=== PATIENT | female | born 1990 | race Caucasian/White ===

== ENCOUNTER 2021-08-14 23:59 | Emergency (ER) | payer BC, SELFPAY ==
--- NOTE | ~2021-08-14 | XR_ITS ---
EXAMINATION: XR chest 2V DATE: 08/15/2021 00:38 INDICATION: Chest pain TECHNIQUE: PA and lateral views of the chest are obtained. COMPARISON: None available FINDINGS: The lungs are free of acute opacities. There is no pleural effusion or pneumothorax. The ca rdiomediastinal silhouette is normal. There is mild thoracic spondylosis. IMPRESSION: 1. No acute cardiopulmonary abnormality. Reviewed, dictated and finalized at location A.
--- NOTE | ~2021-08-14 | XR_ITS ---
EXAMINATION: XR knee RT 3V DATE: 08/15/2021 00:39 INDICATION: Right knee pain TECHNIQUE: Three views of the right knee were obtained on four radiographs. COMPARISON: None. FINDINGS: Alignment is normal. No fracture or osteochondral lesion. Joint spaces are normal with no e rosions. No joint effusion/synovitis. Soft tissues are unremarkable. IMPRESSION: 1. No acute osseous abnormality. Reviewed, dictated and finalized at location A.
[2021-08-15 00:01] VITALS: BP 146/71; PULSE 95; RESP 16; TEMP 36.4; O2SAT 100
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
== END 2021-08-15 01:29 | disposition home or self-care (01) ==
PROVIDERS: Emergency Provider Emergency Medicine
DX: S20.214A Contusion of middle front wall of thorax, initial encounter (principal); S83.91XA Sprain of unspecified site of right knee, initial encounter; V86.55XA Driver of 3- or 4- wheeled all-terrain vehicle (ATV) injured in nontraffic accident, initial encounter
CPT/HCPCS: 71046; 73562; 99284

== ENCOUNTER 2022-04-28 19:36 | Emergency (ER) | payer BC, SELFPAY | END 2022-04-28 20:15 | disposition left against medical advice (07) | PROVIDERS: Emergency Provider Internal Medicine Hematology & Oncology | DX: Z53.21 Procedure and treatment not carried out due to patient leaving prior to being seen by health care provider (principal) | CPT/HCPCS: 99199 ==

== ENCOUNTER 2022-04-28 20:04 | Emergency (ER) | payer BC, SELFPAY ==
--- NOTE | ~2022-04-28 | XR_ITS ---
EXAMINATION: XR chest 1V portable Exam Date/Time: 04/28/2022 21:22 CDT HISTORY: cough, sob, loss of taste, sore throat, sinus pressure Comparison: 08/15/2021. RESULT: Lines, tubes, and devices: None. Lungs and pleura: Clear. Cardiomediastinal silhouette: Stable cardiomediastinal silhouette. Other: No acute osseous or upper abdominal finding. IMPRESSION: No acute cardiopulmonary process. Reviewed, dictated and finalized at location K.
[2022-04-28 20:12] VITALS: BP 139/67; PULSE 82; RESP 18; TEMP 36.8; O2SAT 100
--- NOTE | 2022-04-28 21:20 | ED.GENADULT ---
HPI - General Adult General Chief complaint: Upper Respiratory Infection Stated complaint: cough, congestion, loss of taste Time Seen by Provider: 04/28/22 21:06 Source: RN notes reviewed History of Present Illness HPI narrative: Patient presents emergency department from home for upper respiratory infection. Patient states symptoms initially began yesterday with some sinus pressure and ringing or ears. States is progressed to a sore throat as well as a cough this been nonproductive as well as some mild shortness of breath with exertion. Patient states she did receive the COVID vaccination but did not receive the booster she denies any fevers or chills chest pain abdominal pain nausea vomiting or any other symptoms. Related Data Allergies Allergy/AdvReac Type Severity Reaction Status Date / Time No Known Allergies Allergy Verified 04/28/22 20:57 Review of Systems Review of Systems: Gen.: Denies fevers or chills Eyes: Denies eye pain or visual change ENT: See HPI Respiratory: Reports cough and shortness of breath with exertion CV: Denies chest pain or palpitations GI: Denies abdominal pain nausea, emesis or diarrhea Musculoskeletal: Denies back pain or muscle pain Neuro: Denies numbness, tingling, weakness or focal weakness Skin: Denies rash Except as documented, all other systems reviewed and negative [facility] Past Medical History Medical History (Updated 04/28/22 @ 22:12 by Joe Kinney DO) Patient denies significant medical history Social History Social History (Updated 04/28/22 @ 21:21 by Joe Kinney DO) Substance use type: marijuana Exam Narrative: APPEARANCE: No acute distress, nontoxic, resting in bed EYES: EOMI HEENT: Normocephalic, atraumatic, TMs clear bilaterally bilateral turbinates boggy moderately with no exudate of the posterior pharynx and bilateral tonsils uvula midline RESPIRATORY: No respiratory distress Clear to auscultation bilaterally with no rhonchi wheezing or rales. CARDIOVASCULAR: Regular rate and rhythm without murmurs rubs or gallops. ABDOMINAL: Soft, nontender, nondistended, no rebound or guarding MUSCULOSKELETAl: Moves all extremities. No clubbing, cyanosis or edema. NEURO: Awake and alert. Following commands, speech normal, no focal deficits SKIN:: Warm, dry. No rashes lesions or abrasions PSYCHIATRIC: Normal affect/mood, Course Course Emergency Course: Discussed with patient results of workup and diagnosis. Discussed need for follow-up with primary care, proper use of medication, and reasons to return to the emergency department. Patient understands and agrees to current treatment plan Vital Signs Vital signs: Vital Signs Temperature 98.2 F 04/28/22 20:12 Pulse Rate 82 04/28/22 20:12 Respiratory Rate 18 04/28/22 20:12 Blood Pressure 139/67 04/28/22 20:12 Pulse Oximetry 100 04/28/22 20:12 Oxygen Delivery Room Air 04/28/22 20:12 Temperature 98.2 F 04/28/22 20:12 Pulse Rate 82 04/28/22 20:12 Respiratory Rate 18 04/28/22 20:12 Blood Pressure 139/67 04/28/22 20:12 Pulse Oximetry 100 04/28/22 20:12 Oxygen Delivery Room Air 04/28/22 20:56 Medical Decision Making Vital Signs Vital Signs: Vital Signs Temperature 98.2 F 04/28/22 20:12 Pulse Rate 82 04/28/22 20:12 Respiratory Rate 18 04/28/22 20:12 Blood Pressure 139/67 04/28/22 20:12 Pulse Oximetry 100 04/28/22 20:12 Oxygen Delivery Room Air 04/28/22 20:12 Temperature 98.2 F 04/28/22 20:12 Pulse Rate 82 04/28/22 20:12 Respiratory Rate 18 04/28/22 20:12 Blood Pressure 139/67 04/28/22 20:12 Pulse Oximetry 100 04/28/22 20:12 Oxygen Delivery Room Air 04/28/22 20:56 Lab Data Labs: Lab Results 04/28/22 Range/Units 21:19 SARS-CoV-2 RNA (RT-PCR) Positive A Imaging Data Radiologist's impression: ITS Impressions Chest X-Ray 04/28/22 21:54 IMPRESSION: No acute cardiopulmonary process.
[2022-04-28 22:04] LABS: SARS-CoV-2 RNA PCR Positive
== END 2022-04-28 22:24 | disposition home or self-care (01) ==
PROVIDERS: Emergency Provider Emergency Medicine
DX: U07.1 COVID-19 (principal)
CPT/HCPCS: 71045; 99283; C9803; U0003; U0005

== ENCOUNTER 2022-06-16 08:45 | Emergency (ER) | payer BC, SELFPAY ==
[2022-06-16 08:58] VITALS: BP 125/70; PULSE 78; RESP 16; TEMP 36.2; O2SAT 99
--- NOTE | 2022-06-16 09:22 | ED.URI ---
HPI - URI/Sore Throat General Chief Complaint: Upper Respiratory Infection Stated Complaint: uri Time Seen by Provider: 06/16/22 09:23 Source: patient, RN notes reviewed and old records reviewed Mode of arrival: ambulatory Limitations: no limitations History of Present Illness HPI Narrative: 32 year old female who presents [facility] with complaints of sinus pressure, runny nose, nonproductive cough, with some sore throat, bilateral ears ringing for the past 2 days. Patient reports she had COVID in April 2022 is COVID vaccinated and has not had her booster has not had a flu shot. She has been taking Advil Cold and Sinus and also DayQuil and NyQuil for her symptoms with no resolution or improvement states she has felt feverish but has not had any known chills or sweats. MD elicited complaint: fever ([place] feverish), cough, sore throat, rhinorrhea, nasal congestion, sinus pain and other (Ears ringing) Pertinent past history: other (COVID April 2022, sinus problems) Onset (ago): day(s) (2) Able to tolerate fluids by mouth: Yes Treatments prior to arrival: cold medicine Related Data Allergies Allergy/AdvReac Type Severity Reaction Status Date / Time No Known Allergies Allergy Verified 06/16/22 09:15 Review of Systems Review of Systems: CONSTITUTIONAL: Reports he has felt feverish, no chills, or sweats. EYES: Denies visual changes, redness, or discharge. ENT: Positive rhinorrhea, congestion, sore throat, pressure and ringing bilateral ears CARDIOVASCULAR: Denies chest pain, palpitations, or edema. RESPIRATORY: Some Non-Productive cough denies dyspnea. GASTROINTESTINAL: Denies abdominal pain, nausea, vomiting, or diarrhea. GENITOURINARY: Denies dysuria or hematuria. SKIN: Denies rash or itching. MUSCULOSKELETAL: Denies back pain, joint pain, or myalgia. NEUROLOGIC: Denies headache, numbness, or weakness. PSYCHIATRIC: Denies anxiety or depression. All systems reviewed & are unremarkable except as noted in HPI and below PMFSH Past Medical History Medical History (Updated 06/17/22 @ 16:09 by Virgen Pittman NP) COVID-11 May 2022 History of sinus problem Seizures last 2017 Family History Family History (Updated 06/17/22 @ 16:10 by Virgen Pittman NP) Father Brain aneurysm Social History Social History (Updated 06/17/22 @ 16:10 by Virgen Pittman NP) Smoking status: Never smoker Alcohol intake: current Alcohol use details: social Substance use type: does not use Living arrangements: with family Gender identity (if verbalized by the patient): Female Comments At time of signature, agree with nursing past medical, surgical, social and family history. There is no relevant family history pertinent to the presenting complaint Exam Narrative: GENERAL: Well-appearing, well-nourished, and in no acute distress. HEAD: Normocephalic, atraumatic. EYES: PERRLA and EOMI. ENT: Nares red with clear rhinorrhea no epistaxis. Mucous membranes moist.TM's normal i dull light reflex left, throat with mild redness no lesions or tonsil swelling post nasal drainage NECK: Supple.no lymphadenopathy CHEST: Clear to auscultation. No respiratory distress.SAO2 99% on room air, non productive cough noted HEART: Regular rate and rhythm. No murmur heard. Normal peripheral pulses. ABDOMEN: Soft, nontender, nondistended, normal active bowel sounds. EXTREMITIES: Normal range of motion. No edema. SKIN: Warm, dry, no rash. NEURO: No focal deficits. Alert and oriented x3. Course Course Level of Care: Express Care Visit Vital Signs Vital signs: Vital Signs Temperature 36.2 C L 06/16/22 08:58 Pulse Rate 78 06/16/22 08:58 Respiratory Rate 16 06/16/22 08:58 Blood Pressure 125/70 06/16/22 08:58 Pulse Oximetry 99 06/16/22 08:58 Oxygen Delivery Room Air 06/16/22 08:58 Temperature 36.2 C L 06/16/22 08:58 Pulse Rate 78 06/16/22 08:58 Respiratory Rate 16 06/16/22 08:58 Blood Pressure 125/70 08/2
== END 2022-06-16 09:41 | disposition home or self-care (01) ==
PROVIDERS: Emergency Provider Registered Nurse
DX: J32.9 Chronic sinusitis, unspecified (principal); Z86.16 Personal history of COVID-19
CPT/HCPCS: 99213; G0463

== ENCOUNTER 2022-09-02 17:42 | Emergency (ER) | payer BC, SELFPAY ==
--- NOTE | 2022-09-02 18:02 | ED.URI ---
HPI - URI/Sore Throat General Chief Complaint: Upper Respiratory Infection Stated Complaint: uri Time Seen by Provider: 09/02/22 18:35 Source: patient Mode of arrival: ambulatory Limitations: no limitations History of Present Illness HPI Narrative: Ms. Salazar is a 32-year-old female patient presenting to clinic today with complaints of possible upper respiratory infection x 2 days She has nasal congestion, sore throat, loss of taste,has felt feverish, and shortness of breath. Reports that it is hard to take a deep breath in just due to the congestion. Had COVID back in April MD elicited complaint: sore throat and nasal congestion Related Data Allergies Allergy/AdvReac Type Severity Reaction Status Date / Time No Known Allergies Allergy Verified 09/02/22 18:27 Review of Systems Review of Systems: Pertinent positives per HPI. Patient denies any rash, visual changes, dizziness, chest pain, palpitations, nausea, vomiting, diarrhea, constipation, abdominal pain, or any urinary issues. [facility] Past Medical History Medical History COVID-11 May 2022 History of sinus problem Seizures last 2017 Family History Family History Father Brain aneurysm Social History Social History Smoking status: Never smoker Alcohol intake: current Alcohol use details: social Substance use type: does not use Gender identity (if verbalized by the patient): Female Comments At the time of my signature, I reviewed and agree with the nursing past medical, surgical, social, and family history. There is no relevant family history pertinent to the patient complaint. Exam Narrative: General: Well-developed, obese, in no apparent distress Head: Normocephalic, atraumatic Eyes: Pupils equally round and reactive to light bilaterally, EOM intact, sclera and conjunctive clear, no discharge, lids normal Ears: TMs intact and clear, ear canals clear, no drainage, grossly hearing normal. Nose: Nares patent, clear nasal discharge, moderate inflammation, no sinus tenderness. Mouth: Oral pharynx without lesions or masses, good dentition, MMM. postnasal drip, oropharynx red Neck: Supple, trachea midline, no enlargement of anterior or posterior cervical nodes, no thyroid masses or goiter palpable. Cardio: Regular rate and rhythm, s1 and s2 normal, no murmur appreciated. Resp: Clear to auscultation bilaterally, no rhonchi, rales, wheezing or rubs Course Course Emergency Course: Portions of this record may have been created with voice recognition software. Level of Care: Express Care Visit Vital Signs Vital signs: Vital Signs Temperature 37.5 C 09/02/22 18:31 Pulse Rate 92 09/02/22 18:31 Respiratory Rate 16 09/02/22 18:31 Blood Pressure 129/56 L 09/02/22 18:31 Pulse Oximetry 99 09/02/22 18:31 Oxygen Delivery Room Air 09/02/22 18:31 Temperature 37.5 C 09/02/22 18:31 Pulse Rate 92 09/02/22 18:31 Respiratory Rate 16 09/02/22 18:31 Blood Pressure 129/56 L 09/02/22 18:31 Pulse Oximetry 99 09/02/22 18:31 Oxygen Delivery Room Air 09/02/22 18:31 Vital signs reviewed MDM - URI/Sore Throat MDM Narrative Medical decision making narrative: At the time of visit patient is resting comfortably on the exam table. influenza, COVID, and strep testing was obtained in the clinic today. Supportive measures were discussed with the patient she voiced understanding of discharge instructions and agrees to treatment plan. Differential Diagnosis Differential diagnosis: Likely upper respiratory infection, otitis media, sinusitis, viral infection, bronchitis, influenza, pharyngitis and other ( COVID) Lab Data Labs: Influenza A Screen Positive Reference Range: Negative I
[2022-09-02 18:31] VITALS: BP 129/56; PULSE 92; RESP 16; TEMP 37.5; O2SAT 99
== END 2022-09-02 18:58 | disposition home or self-care (01) ==
PROVIDERS: Emergency Provider Nurse Practitioner Family
DX: J10.1 Influenza due to other identified influenza virus with other respiratory manifestations (principal); Z20.822 Contact with and (suspected) exposure to COVID-19; Z86.16 Personal history of COVID-19
CPT/HCPCS: 87081; 87426; 87804; 87880; 99213; C9803; G0463

== ENCOUNTER 2023-01-22 18:54 | Emergency (ER) | payer BC, SELFPAY ==
--- NOTE | ~2023-01-22 | XR_ITS ---
EXAM: XR foot RT min 3V DATE: 01/22/2023 19:39 HISTORY: pain on lat side of foot, pain since yesterday . COMPARISON: None available. FINDINGS: Normal mineralization. No fracture or dislocation. No lytic or blastic lesion. Joint space s are maintained. No erosion or periosteal change. Soft tissues within normal limits. IMPRESSION: No acute osseous finding in the right foot. Reviewed, dictated and finalized at location K.
[2023-01-22 18:59] VITALS: BP 144/84; PULSE 93; RESP 18; TEMP 36.5; O2SAT 100
--- NOTE | 2023-01-22 20:06 | ED.GENADULT ---
HPI - General Adult General Chief complaint: Extremity Injury, Lower Stated complaint: R. foot pain Time Seen by Provider: 01/22/23 19:17 History of Present Illness HPI narrative: 32-year-old female presented the emergency department for evaluation of right foot pain. Patient states she initially began having the right lateral ankle and right foot pain on . Patient states she does spend a lot of time on her feet at work but denies any other known injury. Patient states the pain is worsened with weightbearing. Related Data Allergies Allergy/AdvReac Type Severity Reaction Status Date / Time No Known Allergies Allergy Verified 09/02/22 18:27 Review of Systems Review of Systems: All systems reviewed & are unremarkable except as noted in HPI and below PMFSH Past Medical History Medical History COVID-11 May 2022 History of sinus problem Seizures last 2017 Family History Family History Father Brain aneurysm Social History Social History Smoking status: Never smoker Alcohol intake: current Alcohol use details: social Substance use type: does not use Living arrangements: with family Gender identity (if verbalized by the patient): Female Exam Narrative: APPEARANCE: Well appearing, no pain, no distress, well-nourished. HEAD: normocephalic, atraumatic. EYES: PERRLA/EOMI, conjunctivae clear. MUSCULOSKELETAL: Moves all extremities. No right ankle edema or ecchymosis. Minimal inferior lateral malar tenderness. Some tenderness on the right lateral foot. NEURO: Alert. Cranial nerves II through XII intact. Good gait. Good coordination SKIN: Warm, dry. Normal Color Course Course Emergency Course: 32-year-old female with right ankle and foot pain. X-ray was negative for acute fracture or dislocation. Exam is consistent with a possible ligamental strain. Patient will be provided Iron wrap and crutches for limited weightbearing. Patient was not informed the treatment plan for home and was advised to do ice therapy and take Tylenol and ibuprofen for pain control. Patient was also encouraged of close follow-up with her primary care physician. Vital Signs Vital signs: Vital Signs Temperature 97.7 F 01/22/23 18:59 Pulse Rate 93 01/22/23 18:59 Respiratory Rate 18 01/22/23 18:59 Blood Pressure 144/84 H 01/22/23 18:59 Pulse Oximetry 100 01/22/23 18:59 Oxygen Delivery Room Air 01/22/23 18:59 Temperature 97.7 F 01/22/23 18:59 Pulse Rate 93 01/22/23 18:59 Respiratory Rate 18 01/22/23 18:59 Blood Pressure 144/84 H 01/22/23 18:59 Pulse Oximetry 100 01/22/23 18:59 Oxygen Delivery Room Air 01/22/23 18:59 Medical Decision Making Vital Signs Vital Signs: Vital Signs Temperature 97.7 F 01/22/23 18:59 Pulse Rate 93 01/22/23 18:59 Respiratory Rate 18 01/22/23 18:59 Blood Pressure 144/84 H 01/22/23 18:59 Pulse Oximetry 100 01/22/23 18:59 Oxygen Delivery Room Air 01/22/23 18:59 Temperature 97.7 F 01/22/23 18:59 Pulse Rate 93 01/22/23 18:59 Respiratory Rate 18 01/22/23 18:59 Blood Pressure 144/84 H 01/22/23 18:59 Pulse Oximetry 100 01/22/23 18:59 Oxygen Delivery Room Air 01/22/23 18:59 Imaging Data Radiologist's impression: Impressions Foot X-Ray 01/22/23 19:43 IMPRESSION: No acute osseous finding in the right foot. Discharge Plan Discharge Clinical Impression: Right ankle strain Patient Disposition: Home, Self-Care Condition: Stable Instructions: Antibiotic Form, Ankle Sprain (ED), Crutch Instructions (ED) Additional Instructions: Iron wrap for her comfort, crutches for limited weightbearing. Tylenol and ibuprofen for pain control. Ice therapy as directed. Have close follow-up with your primary ca
== END 2023-01-22 21:17 | disposition home or self-care (01) ==
PROVIDERS: Emergency Provider Emergency Medicine
DX: S96.911A Strain of unspecified muscle and tendon at ankle and foot level, right foot, initial encounter (principal); X58.XXXA Exposure to other specified factors, initial encounter
CPT/HCPCS: 73630; 99283

== ENCOUNTER 2024-06-15 19:32 | Emergency (ER) | payer BC, SELFPAY ==
--- NOTE | 2024-06-15 19:33 | ED.BACK ---
HPI - Back Pain/Injury General Chief Complaint: Back Pain/Injury Stated Complaint: Back/Right Arm Pain Time Seen by Provider: 06/15/24 19:33 Source: patient Mode of arrival: ambulatory Limitations: no limitations History of Present Illness HPI Narrative: Melvi is a 34-year-old female patient presenting to the clinic today with complaints of right upper back pain/arm pain times 1-2 days. She reports she 1st noticed the pain in the right upper trapezius near the base of her neck. She denies any known neck injury. Has pain when turning her head to the left and also has numbness and tingling in the right arm. 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 Numbness comes and goes. Has tried massaging and this has helped some. Related Data Allergies Allergy/AdvReac Type Severity Reaction Status Date / Time No Known Allergies Allergy Verified 06/15/24 19:46 Review of Systems Review of Systems: Pertinent positives per HPI. Patient denies any fever, chills, rash, headache, visual changes, dizziness, cough, runny nose, sore throat, shortness of breath, chest pain, palpitations, nausea, vomiting, diarrhea, constipation, abdominal pain, or any urinary issues. PMFSH Past Medical History Medical History COVID-11 May 2022 History of sinus problem Seizures last 2018 Family History Family History Father Brain aneurysm Social History Social History Smoking status: Never smoker Alcohol intake: current Alcohol use details: social Substance use type: does not use Living arrangements: with family Gender identity (if verbalized by the patient): Female Comments At the time of my signature, I reviewed and agree with the nursing past medical, surgical, social, and family history. There is no relevant family history pertinent to the patient complaint. Exam Narrative: General: Well-developed, well nourished, in no apparent distress Head: Normocephalic, atraumatic. Cardio: Regular rate and rhythm, s1 and s2 normal, no murmur appreciated. Resp: Clear to auscultation bilaterally, no rhonchi, rales, wheezing or rubs. Musculoskeletal: No deformity,tender to palpation over the right upper trapezius with discomfort radiating down the right arm, pain over the right upper trapezius when turning her head against resistance to the left, hand grasp strength equal bilaterally, grossly normal range of motion, muscle strength strong and equal, peripheral pulse strong, no edema, no cyanosis, normal gait and station Course Course Emergency Course: Portions of this record may have been created with voice recognition software. Level of Care: Express Care Visit Vital Signs Vital signs: Vital signs reviewed MDM - Back Pain/Injury MDM Narrative Medical decision making narrative: At the time of visit patient is resting comfortably on the exam table. Patient appears to be nontoxic. Plan: I suspect patient has a trapezius muscle strain. Will send in prescription for Medrol Dosepak and cyclobenzaprine. Supportive measures were discussed with the patient and they voiced understanding discharge instructions and agrees to treatment plan. Return precautions reviewed Differential Diagnosis Differential diagnosis: Likely thoracic back pain and other (Muscle strain, cervical spondylosis, tendinitis) Discharge Plan Discharge Clinical Impression: Strain of cervical portion of right trapezius muscle Patient Disposition: Home, Self-Care Condition: Stable Instructions: Antibiotic Form, Cervical Strain (ED), Muscle Strain (DC) Additional Instructions: Take any prescription medication only as prescribed. Be mindful of sedation precautions given to you if taking a muscle relaxer. May use heat or ice to the affected area Consider massage or chiropractor adju
[2024-06-15 19:39] VITALS: BP 130/79; PULSE 79; RESP 16; TEMP 37.3; O2SAT 99
== END 2024-06-15 19:54 | disposition home or self-care (01) ==
PROVIDERS: Emergency Provider Nurse Practitioner Family
DX: S16.1XXA Strain of muscle, fascia and tendon at neck level, initial encounter (principal); X58.XXXA Exposure to other specified factors, initial encounter; Z86.16 Personal history of COVID-19
CPT/HCPCS: 99213; G0463

== ENCOUNTER 2024-07-02 19:48 | Emergency (ER) | payer BC, SELFPAY ==
[2024-07-02 20:01] VITALS: BP 152/83; PULSE 94; RESP 20; TEMP 37; O2SAT 99
--- NOTE | 2024-07-02 20:16 | ED.UPPEXIN ---
HPI - Extremity Injury (Upper) General Chief Complaint: Extremity Problem,Nontraumatic Stated Complaint: Right Arm Pain Time Seen by Provider: 07/02/24 20:18 Source: patient and RN notes reviewed Mode of arrival: ambulatory Limitations: no limitations History of Present Illness HPI narrative: 34-year-old female presents with concern for ongoing right arm pain and numbness that starts in the trapezius area. Reports she was seen here at the end of May prescribed prednisone and muscle relaxers. Reports he has also been seeing a chiropractor and this symptoms have been improving. He told her she is out of the ?acute? stage. Reports she is still having some pain and numbness. She reports symptoms did improve with the steroid and muscle relaxer but she ran out. MD complaint: injury to: right and arm Related Data Allergies Allergy/AdvReac Type Severity Reaction Status Date / Time No Known Allergies Allergy Verified 07/02/24 20:18 Review of Systems Review of Systems: CONSTITUTIONAL: Denies malaise, chills, sweats, or fever. SKIN: Denies rash or itching, open skin, laceration, abrasion, redness, warmth, swelling. MUSCULOSKELETAL: Reports right trapezius and arm pain NEUROLOGIC: Denies numbness, weakness All systems reviewed & are unremarkable except as noted in HPI and below PMFSH Past Medical History Medical History COVID-11 May 2022 History of sinus problem Seizures last 2017 Family History Family History Father Brain aneurysm Social History Social History Smoking status: Never smoker Alcohol intake: current Alcohol use details: social Substance use type: does not use Living arrangements: with family Gender identity (if verbalized by the patient): Female Comments At time of signature, agree with nursing past medical, surgical, social and family history. There is no relevant family history pertinent to the presenting complaint Exam Narrative: GENERAL: Well-appearing, well-nourished, and in no acute distress. HEAD: Normocephalic, atraumatic. EYES: PERRLA, conjunctivae clear NECK: Supple. CHEST: Speaks in full sentences. No respiratory distress. HEART: Regular rate and rhythm. Normal and equal peripheral pulses. EXTREMITIES: Right upper extremity has grossly normal strength, grossly normal range of motion. No edema or ecchymosis. Normal sensation with sensitivity to light touch and pain. Skin warm, dry, pink. Capillary refill less than 3 seconds. SKIN: Warm, dry, no rash. NEURO: Alert and oriented x3. PSYCH: Normal mood and affect Course Course Emergency Course: Patient is aware of diagnosis, understands and agrees to treatment plan. Anticipatory guidance given. Patient agrees to follow-up as directed and is aware of reasons to seek care at the emergency department. Portions of this record may have been created with voice recognition software Level of Care: Express Care Visit Vital Signs Vital signs: Vital Signs Temperature 98.6 F 07/02/24 20:01 Pulse Rate 94 07/02/24 20:01 Respiratory Rate 20 07/02/24 20:01 Blood Pressure 152/83 H 07/02/24 20:01 Pulse Oximetry 99 07/02/24 20:01 Oxygen Delivery Room Air 07/02/24 20:01 Temperature 98.6 F 07/02/24 20:01 Pulse Rate 94 07/02/24 20:01 Respiratory Rate 20 07/02/24 20:01 Blood Pressure 152/83 H 07/02/24 20:01 Pulse Oximetry 99 07/02/24 20:01 Oxygen Delivery Room Air 07/02/24 20:01 Reviewed. MDM - Extremity Injury (Upper) MDM Narrative Medical decision making narrative: Patients pain is consistent with musculoskeletal etiology. No signs of neurological or vascular compromise on exam. Compartments and tissues are soft without signs of compartment syndrome. Pain is felt appropriate for further evaluation on an outpatie
== END 2024-07-02 20:33 | disposition home or self-care (01) ==
PROVIDERS: Emergency Provider Nurse Practitioner
DX: S16.1XXA Strain of muscle, fascia and tendon at neck level, initial encounter (principal); X58.XXXA Exposure to other specified factors, initial encounter; Z86.16 Personal history of COVID-19
CPT/HCPCS: 99213; G0463

== ENCOUNTER → 2024-07-22 14:27 | Outpatient (CLI) | payer BC, SELFPAY ==
--- NOTE | ~2024-07-22 | XR_ITS ---
XR cervical spine 4-5V Ordering provider: Margarita Childers DO History: . M54.12 - Radiculopathy, cervical region . Comparison: None. FINDINGS: VERTEBRAL BODIES: Normal height and alignment. No visible fracture or subluxation. The dens is intact . DISK SPACES: Well maintained. PARASPINOUS SOFT TISSUES: No prevertebral soft tissue swelling. IMPRESSION: No acute osseous abnormality cervical spine. Reviewed, dictated and finalized at location A.
--- NOTE | ~2024-07-22 | XR_ITS ---
XR shoulder RT min 2V Ordering provider: Margarita Childers DO History: . M54.12 - Radiculopathy, cervical region . Comparison: None. FINDINGS: BONES: No acute fracture or dislocation. JOINT SPACES: The acromioclavicular joint is normal. The glenohumeral joint is normal. SOFT TISSUES: Normal. IMPRESSION: No acute osseous abnormality right shoulder. Reviewed, dictated and finalized at location A.
== END ==
PROVIDERS: PCP Family Medicine; Visit Provider Family Medicine
DX: M54.12 Radiculopathy, cervical region (principal)
CPT/HCPCS: 72050; 73030

== ENCOUNTER 2024-12-30 15:23 | Emergency (ER) | payer BC, SELFPAY ==
--- NOTE | ~2024-12-30 | XR_ITS ---
EXAMINATION: [id number] Exam Date/Time: 12/30/2024 16:17 CDT HISTORY: pain mid lateral rib pain s/p fall yesterday Comparison: 08/15/2021. RESULT: Lines, tubes, and devices: None. Lungs and pleura: Clear. Cardiomediastinal silhouette: Stable. Other: No acute osseous or upper abdominal finding. IMPRESSION: No acute cardiopulmonary process. No acute osseous finding in the left ribs. Reviewed, dictated and finalized at location K.
--- NOTE | ~2024-12-30 | XR_ITS ---
EXAM: XR finger 4th LT min 2V DATE: 12/30/2024 16:22 HISTORY: pain left distal 4th finger s/p fall yesterday . COMPARISON: None available. FINDINGS: Normal mineralization. No fracture or dislocation. No lytic or blastic lesion. Joint space s are maintained. No erosion or periosteal change. Soft tissues within normal limits. IMPRESSION: No acute osseous finding in the left fourth digit. Reviewed, dictated and finalized at location K.
[2024-12-30 15:33] VITALS: BP 113/60; PULSE 95; RESP 16; TEMP 37.2; O2SAT 99
--- NOTE | 2024-12-30 15:33 | ED_ITS ---
HPI - General Adult General Chief complaint: Fall Stated complaint: left shoulder blade,ring finger injury Time Seen by Provider: 12/30/24 15:44 Source: patient, RN notes reviewed and old records reviewed Mode of arrival: ambulatory Limitations: no limitations History of Present Illness HPI narrative: 34-year-old female presents to the [facility] with left lateral rib pain and left ring finger pain. Reports from the PIP to the tip she is tender. No bruising or swelling noted to either the ribs or the finger. Patient states that she stumbled when her dog pulled her. Landed on some stairs and then against the wall. Did take ibuprofen last night. Onset (ago): day(s) (1) Related Data Allergies Allergy/AdvReac Type Severity Reaction Status Date / Time No Known Allergies Allergy Verified 12/30/24 15:29 Review of Systems Review of Systems: All systems reviewed & are unremarkable except as noted in HPI and below Constitutional: Constitutional: Reports no additional constitutional comp laints ENT: Reports system reviewed and no additional complaints, except as documented Cardiovascular: Cardiovascular: Reports no additional cardiovascular complaints, Denies chest pain and Denies dyspnea Respiratory: Respiratory: Reports no additional respiratory complaints, Denies chest congestion, Denies cough and Denies dyspnea Musculoskeletal: Musculoskeletal: Reports as per HPI Integumentary/Breasts: Skin/Breast: Reports system reviewed and no additional complaints, except as docu PMFSH Past Medical History Medical History Seizures last 2018 History of sinus problem COVID-11 May 2022 Family History Family History Father Brain aneurysm Alcoholism Mother Diabetes mellitus Other Cerebrovascular accident Family history of cardiovascular disease Hypertension Malignant neoplasm of prostate Social History Social History Smoking status: Never smoker Alcohol intake: current Alcohol use details: social Substance use type: does not use Do You Feel Safe in your Home?: Yes Lack of Transportation: YES Lack of Food: Never True Current Housing: I Have Housing Concerned About Future Housing: No Difficulty Paying Gas/Electric Bills: No Difficulty Paying for Meds: No Currently Unemployed: No Education: High School Diploma/GED Difficulty w/ Childcare or Family Care: No Living arrangements: with family Gender identity (if verbalized by the patient): Female Comments At the time of my signature, I reviewed and agree with the nursing past medical, surgical, social, and family history. There is no relevant family history pertinent to the patient complaint. Exam Const: General: cooperative, healthy appearing, comfortable, no acute distress, well developed, alert and well nourished Nutritional Appearance: well nourished Orientation/consciousness: patient oriented x3 Limitations: no limitations HENMT: Head: normal to inspection Eyes: General: appearance normal, both eyes and all related structures Alignment and Position: alignment normal Neck: Neck: normal visual inspection, full ROM, no lymphadenopathy and no meningeal signs Chest: Chest palpation & inspection: normal inspection of the chest Resp: Effort & Inspection: normal respiratory effort and able to speak in complete sentences Auscultation: clear to auscultation bilaterally, no crackles, no rales, no rhonchi and no wheezes Cardio: Rate: regular rate Skin: General skin exam: normal color and no rashes or lesions noted Neuro: General: patient oriented x3, gait normal, moves all extremities and no meningeal signs Cognition (Neuro): normal cognition Speech: normal speech Gait exam (Neuro): Normal gait present Extrem: General: normal to inspection, full ROM, capillary refill normal and normal gait Left upper extremity: hand normal capillary refill, tenderness of the 4th digit at the middle phalanx and at the distal phalanx, vascular exam radial pulse present and normal capillary refill, no swelling and other; no unusual warmth, no swelling, no abrasions, no lacerations and no ecchymosis Other: Left lateral rib pain, tenderness with palpation and with movement. No erythema, ecchymosis noted. Psych: Appearance: grossly normal and well kempt Mental Status: mental status grossly normal Speech and movement: Normal speech and movement present and Clear speech present Affect: normal affect Attitude: cooperative Course Course Level of Care: Express Care Visit Vital Signs Vital signs: Vital Signs Temperature 98.9 F 12/30/24 15:33 Pulse Rate 95 12/30/24 15:33 Respiratory Rate 16 12/30/24 15:33 Blood Pressure 113/60 12/30/24 15:33 Pulse Oximetry 99 12/30/24 15:33 Oxygen Delivery Room Air 12/30/24 15:33 Temperature 98.9 F 12/30/24 15:33 Pulse Rate 95 12/30/24 15:33 Respiratory Rate 16 12/30/24 15:33 Blood Pressure 113/60 12/30/24 15:33 Pulse Oximetry 99 12/30/24 15:33 Oxygen Delivery Room Air 12/30/24 15:33 Reviewed Medical Decision Making MDM Narrative Medical decision making narrative: Patient sitting comfortably in exam room. Nontoxic, vitals stable. Patient in no acute distress Patient presents for rib pain and finger pain post fall. No abnormalities noted on exam. Except for tenderness of the finger and the ribs. X-rays are negative. Patient appropriate for outpatient treatment and follow-up Discharge instructions reviewed with patient, as well as provided in writing per nursing staff. The instructions also include specific and strict return/GO TO THE ER as well as f/u information. All questions have been answered, and the patient deny any further questions with discharge and discharge plan. Some parts of this dictation were generated by voice recognition software and may contain typographical and/or grammatical inaccuracies. Differential Diagnosis Differential Diagnosis: Contusion, sprain, strain, fracture Medical Records Medical records reviewed: Yes I reviewed the external patient's medical records. Vital Signs Vital Signs: Vital Signs Temperature 98.9 F 12/30/24 15:33 Pulse Rate 95 12/30/24 15:33 Respiratory Rate 16 12/30/24 15:33 Blood Pressure 113/60 12/30/24 15:33 Pulse Oximetry 99 12/30/24 15:33 Oxygen Delivery Room Air 12/30/24 15:33 Temperature 98.9 F 12/30/24 15:33 Pulse Rate 95 12/30/24 15:33 Respiratory Rate 16 12/30/24 15:33 Blood Pressure 113/60 12/30/24 15:33 Pulse Oximetry 99 12/30/24 15:33 Oxygen Delivery Room Air 12/30/24 15:33 Reviewed Lab Data Lab results reviewed: Yes I reviewed the patient's lab results. Labs: Reviewed Imaging Data Radiologist's impression: EXAMINATION: [id number] Exam Date/Time: 12/30/2024 16:17 CDT HISTORY: pain mid lateral rib pain s/p fall yesterday Comparison: 08/15/2021. RESULT: Lines, tubes, and devices: None. Lungs and pleura: Clear. Cardiomediastinal silhouette: Stable. Other: No acute osseous or upper abdominal finding. IMPRESSION: No acute cardiopulmonary process. No acute osseous finding in the left ribs. EXAM: XR finger 4th LT min 2V DATE: 12/30/2024 16:22 HISTORY: pain left distal 4th finger s/p fall yesterday . COMPARISON: None available. FINDINGS: Normal mineralization. No fracture or dislocation. No lytic or blastic lesion. Joint spaces are maintained. No erosion or periosteal change. Soft tissues within normal limits. IMPRESSION: No acute osseous finding in the left fourth digit. Critical Care Time Critical Care Time Critical Care Time: No Discharge Plan Discharge Clinical Impression: Contusion of rib, Finger sprain, Fall Patient Disposition: Home, Self-Care Condition: Stable Instructions: Antibiotic Form, Contusion in Adults (ED) Additional Instructions: Your Xray did not show a fracture. Ice should be applied to help reduce swelling. It can be used for 20 to 30 minutes, every 2-3 hours while awake. Do not apply ice directly to your skin. You can alternate ibuprofen 600mg and Tylenol 650mg every 4 hours as needed for pain Please schedule a follow-up visit with your personal physician for further evaluation and treatment within 2 weeks especially if symptoms persist. For new or worsening symptoms go directly to the emergency room Patient Language: Ukrainian Prescriptions: No Action methylphenidate HCl [Concerta] 54 mg tablet extended release 24hr 54 mg PO QAM Qty: 30 0RF Follow-up/Referrals: Dangelo Velez MD [Primary Care Provider] - 2 Weeks ([facility] follow-up) Stand Alone Forms: Work/School Release IP Time of Disposition: 17:07
== END 2024-12-30 17:12 | disposition home or self-care (01) ==
PROVIDERS: Emergency Provider Nurse Practitioner; PCP Family Medicine
DX: S20.212A Contusion of left front wall of thorax, initial encounter (principal); W01.198A Fall on same level from slipping, tripping and stumbling with subsequent striking against other object, initial encounter; S63.615A Unspecified sprain of left ring finger, initial encounter; Z86.16 Personal history of COVID-19
CPT/HCPCS: 71101; 73140; 99214; G0463

== ENCOUNTER 2025-09-22 19:06 | Emergency (ER) | payer OTHER, BC, SELFPAY ==
--- NOTE | ~2025-09-22 | XR_ITS ---
EXAMINATION: XR ankle LT min 3V, 09/22/2025 19:20 [employer] HISTORY: ankle was stepped on. now swollen and pain COMPARISON: No comparisons available. Findings: No acute fracture or malalignment. No significant degenerative changes. Soft tissues unremarkable. Impression: No acute fracture or malalignment. Reviewed, dictated and finalized at location P. [employer] Impression: No acute fracture or malalignment.
--- NOTE | 2025-09-22 19:10 | ED.LOWEXIN ---
HPI - Extremity Injury (Lower) General Chief Complaint: Extremity Injury, Lower Stated Complaint: lt foot pain Time Seen by Provider: 09/22/25 19:10 Source: patient Mode of arrival: ambulatory Limitations: no limitations History of Present Illness HPI Narrative: Patient is a 35-year-old female who presents with left ankle pain after a co-worker stepped on foot one week ago. Patient states it is still swollen but is able to ambulate. Patient has not been wrapping foot. Related Data Allergies Allergy/AdvReac Type Severity Reaction Status Date / Time No Known Allergies Allergy Verified 09/22/25 19:32 Review of Systems Review of Systems: All systems reviewed & are unremarkable except as noted in HPI and below Constitutional: Constitutional: Denies body ache(s), Denies chills, Denies fatigue, Denies fever(s), Denies headache(s), Denies malaise and Denies weakness Eyes: Eyes: Denies blurry vision, Denies irritation and Denies loss of vision ENT: Denies otalgia, Denies headache(s), Denies nasal discharge, Denies sinus pain and Denies sore throat Cardiovascular: Cardiovascular: Denies chest pain, Denies irregular heart rhythm and Denies dyspnea Respiratory: Respiratory: Denies dyspnea Gastrointestinal: Gastrointestinal: Denies abdominal pain, Denies melena, Denies hematochezia, Denies diarrhea, Denies nausea and Denies vomiting Musculoskeletal: Musculoskeletal: Denies back pain, Denies myalgias, Reports arthralgias and Reports joint swelling Integumentary/Breasts: Skin/Breast: Denies pruritus and Denies rash Neurologic: Denies headache(s), Denies loss of vision and Denies weakness Psychiatric: Psychiatric: Reports no additional psychiatric complaints Endocrine: Endocrine: Denies fatigue [facility] Past Medical History Medical History Seizures last 2018 History of sinus problem COVID-11 May 2022 Family History Family History Father Brain aneurysm Alcoholism Mother Diabetes mellitus Other Cerebrovascular accident Family history of cardiovascular disease Hypertension Malignant neoplasm of prostate Social History Social History Smoking status: Never smoker Alcohol intake: current Alcohol use details: social Substance use type: does not use Lack of Transportation: YES Lack of Food: Never True Current Housing: I Have Housing Concerned About Future Housing: No Difficulty Paying Gas/Electric Bills: No Difficulty Paying for Meds: No Currently Unemployed: No Education: High School Diploma/GED Difficulty w/ Childcare or Family Care: No Living arrangements: with family Gender identity (if verbalized by the patient): Female Comments At time of signature, agree with nursing past medical, surgical, social and family history. There is no relevant family history pertinent to the presenting complaint. Exam Const: General: cooperative, healthy appearing, comfortable, no acute distress and well nourished Nutritional Appearance: well nourished Orientation/consciousness: patient oriented x3 Limitations: no limitations HENMT: Head: normal to inspection, normocephalic and atraumatic Ears: hearing grossly normal bilaterally and external ears normal Face/Nose/Sinus: Normal external nose present, normal facial exam and face symmetric Face and sinus: normal facial exam and face symmetric Mouth: Yes lip normal Eyes: General: appearance normal, both eyes and all related structures Alignment and Position: alignment normal and position normal Periorbital: periorbital findings normal Eyelids: eyelids normal Pupils: Equal, round and reactive pupils present EOM: EOMs intact bilaterally Neck: Neck: normal visual inspection, full ROM and supple Chest: Chest palpation & inspection: normal inspection of the chest Resp: Effort & Inspection: normal respiratory effort and able to speak in complete sentences Auscultation: clear to auscultation bilaterally Cardio: Rate: regular rate Rhythm: regular rhythm Heart sounds: S1 normal heart sound present and S2 normal heart sound present GI: Inspection: normal to inspection Skin: General skin exam: normal color and no rashes or lesions noted Neuro: General: patient oriented x3 and moves all extremities Cranial nerves: Yes Equal, round and reactive pupils present Speech: normal speech Gait exam (Neuro): Normal gait present Extrem: General: normal to inspection, full ROM and no edema Left lower extremity: lower leg Details: normal to inspection; no tenderness, ankle Details: normal to inspection, tenderness Location: of the lateral malleolus, swelling Details: laterally and normal ROM; no ecchymosis and achilles tendon exam normal and foot Details: normal capillary refill, toes with normal ROM, vascular exam Details: dorsalis pedis pulse present and normal capillary refill and tendon exam active flexion normal and active extension normal; no tenderness and no ecchymosis Psych: Appearance: grossly normal and well kempt Mental Status: mental status grossly normal Speech and movement: Normal speech and movement present Affect: normal affect Attitude: cooperative Thought process: Normal thought process present Course Course Emergency Course: Patient is aware of diagnosis, understands and agrees to treatment plan. Anticipatory guidance given. Patient agrees to follow-up as directed and is aware of reasons to seek care at the emergency department. Portions of this record may have been created with voice recognition software Level of Care: Express Care Visit Vital Signs Vital signs: Vital Signs Temperature 36.6 C 09/22/25 19:15 Pulse Rate 90 09/22/25 19:15 Respiratory Rate 18 09/22/25 19:15 Blood Pressure 142/72 H 09/22/25 19:15 Pulse Oximetry 98 09/22/25 19:15 Oxygen Delivery Room Air 09/22/25 19:15 Temperature 36.6 C 09/22/25 19:15 Pulse Rate 90 09/22/25 19:15 Respiratory Rate 18 09/22/25 19:15 Blood Pressure 142/72 H 09/22/25 19:15 Pulse Oximetry 98 09/22/25 19:15 Oxygen Delivery Room Air 09/22/25 19:15 Reviewed MDM - Extremity Injury (Lower) MDM Narrative Medical decision making narrative: Patient is able to bear weight and ambulate without pain. No surface of trauma or obvious effusion. No overlying erythema or warmth. The L ankle is without obvious asymmetry or deformity when comparing to the R. Patient has no pain with dorsiflexion, plantar flexion, eversion, and inversion. Tenderness to lateral ankle on palpation with mild swelling. Motor and neurovascular status intact. Iron wrap applied. no fracture per my interpretation. X-ray read as normal after patient departure. Pt well hydrated appearing, in no respiratory distress, hemodynamically stable. Recommend supportive care. The patient is stable at time of discharge the clinical impression was discussed and the patient was given the opportunity to ask questions, which were addressed as completely as possible given the information available at present. Anticipatory guidance and return to care precautions were discussed and the importance of primary care follow-up was stressed and encouraged. The patient voiced understanding of the plan, indications to return, and the need for follow-up. Exam findings show no acute concerns or changes Patient is appropriate for outpatient treatment and follow-up. Differential Diagnosis Differential diagnosis: Likely ankle sprain and strain and ankle fracture Medical Records Attestation: I reviewed the patient's medical records. Imaging Data Attestation: I personally reviewed and interpreted this imaging study as follows: My impression: left ankle three view: No fracture or dislocation to left ankle Radiologist's impression: EXAMINATION: XR ankle LT min 3V, 09/22/2025 19:20 [employer] HISTORY: ankle was stepped on. now swollen and pain COMPARISON: No comparisons available. Findings: No acute fracture or malalignment. No significant degenerative changes. Soft tissues unremarkable. Impression: No acute fracture or malalignment. Reviewed, dictated and finalized at location [employer]. [employer] Discharge Plan Discharge Clinical Impression: Ankle sprain and strain Patient Disposition: Home Condition: Stable Instructions: Ankle Strain (ED) Additional Instructions: Xray showed no fracture. Minimize activities that aggravate the condition The RICE protocol. Follow the RICE protocol as soon as possible after your injury: Rest your ankle by not walking on it. Ice should be immediately applied to keep the swelling down. It can be used for 20 to 30 minutes, three or four times daily. Do not apply ice directly to your skin. Compression dressings, bandages or iron-wraps will immobilize and support your injured ankle. Elevate your ankle above the level of your heart as often as possible during the first 48 hours. Medication: Nonsteroidal anti-inflammatory drugs (NSAIDs) such as ibuprofen and naproxen can help control pain and swelling. Because they improve function by both reducing swelling and controlling pain, they are a better option for mild sprains than narcotic pain medicines. Please schedule a follow-up visit with your personal physician for further evaluation and treatment within 1week OR If your symptoms persist, change or worsen significantly before you can contact your personal physician then please, without delay, go to the emergency department for further evaluation. Patient Language: Irish Prescriptions: New ibuprofen 600 mg tablet 600 mg PO TID PRN (Reason: pain) Qty: 30 0RF No Action methylphenidate HCl [Concerta] 54 mg tablet extended release 24hr 54 mg PO QAM Qty: 30 0RF methylphenidate HCl 5 mg tablet 5 mg PO DAILY PRN (Reason: long work day) Qty: 30 0RF Rx Instructions: Take at noon after taking concerta in the morning for a long work day Follow-up/Referrals: Dangelo Velez MD [Primary Care Provider, Family Practice] - 3 Days Stand Alone Forms: Work/School Release IP Time of Disposition: 19:37
[2025-09-22 19:15] VITALS: BP 142/72; PULSE 90; RESP 18; TEMP 36.6; O2SAT 98
== END 2025-09-22 19:48 | disposition home or self-care (01) ==
PROVIDERS: Emergency Provider Nurse Practitioner Family; PCP Family Medicine
DX: S93.402A Sprain of unspecified ligament of left ankle, initial encounter (principal); S96.912A Strain of unspecified muscle and tendon at ankle and foot level, left foot, initial encounter; W50.0XXA Accidental hit or strike by another person, initial encounter
CPT/HCPCS: 73610; 99213; G0463